=== PATIENT | female | born 1950 | race Caucasian/White ===

== ENCOUNTER 2021-04-12 06:55 | Emergency (ER) | payer MEDICARE, MEDICAID ==
[~2021-04-12] VITALS: Ht 147.3 cm; Wt 58.9 kg
[2021-04-12] MEDS ORDERED: OXYcodone/APAP 5/325MG TABLET PO ONE (07:30)
[2021-04-12] MEDS ORDERED: KETOROLAC 30 MG/1 ML IM ONE (07:30)
[2021-04-12] MEDS ORDERED: CYCLOBENZAPRINE 10 MG TABLET PO ONE (07:30)
[2021-04-12] MEDS ORDERED: CYCLOBENZAPRINE 10 MG TABLET ONE (07:43)
[2021-04-12] MEDS ORDERED: KETOROLAC 30 MG/1 ML ONE (07:43)
[2021-04-12] MEDS ORDERED: OXYcodone/APAP 5/325MG TABLET ONE (07:43)
--- NOTE | 2021-04-12 07:58 | NUR ---
THIS IS A PLESANT 70 YO F W/ C/O LOW BACK PAIN STARTING THE NIGHT BEFORE LAST NIGHT. PT REPORTS PAIN FEELS SIMILAR TO WHEN SHE NEEDED SPINAL FUSION SURGERY. PT RATES PAIN 10/10. PT MEDICATED PER EMAR. RESTING ON GURNEY W/ CALL LIGHT IN REACH, SIDE RAILS UPX2 AND FAMILY AT BEDSIDE. VSAlexis, NICK. AWAITING XR READ.
[2021-04-12] MEDS ORDERED: LORazepam 1MG TABLET ONE (08:39)
[2021-04-12 08:41] VITALS: BP 152/72
--- NOTE | 2021-04-12 08:45 | NUR ---
PT REPORTS CLAUSTROPHOBIA W/ LAST MRI. ERP UPDATED. PT MEDICATED PER EMAR. MRI SCREEN FORM FAXED. PT RESTING ON [facility] [employer] W/ CALL LIGHT IN REACH AND SIDE RAILS UPX2, RESP EVEN AND UNLABORED, NICK.
[2021-04-12] MEDS ORDERED: LORazepam 1MG TABLET PO ONE (09:00)
--- NOTE | 2021-04-12 09:35 | NUR ---
PT IN MRI.
--- NOTE | 2021-04-12 11:07 | NUR ---
AT BEDSIDE FOR RECHECK.
--- NOTE | 2021-04-12 11:19 | NUR ---
Patient given discharge instructions and they have confirmed that they understand the instructions. Patient wheeled to dc desk per pt request.
== END 2021-04-12 11:21 | disposition home or self-care (01) ==
LOC: ED 08:08
DX: G89.29 Other chronic pain (principal); M54.5 Low back pain; M54.6 Pain in thoracic spine; I10 Essential (primary) hypertension; Z90.49 Acquired absence of other specified parts of digestive tract; Z88.5 Allergy status to narcotic agent
CPT/HCPCS: 72110; 72146; 72148; 96372; 99285; J1885